=== PATIENT | male | born 1945 | race Caucasian/White ===

== ENCOUNTER 2017-11-03 10:09 | Day surgery (SDC) | payer MEDICARE ==
[2017-11-03] MEDS: CYCLOPENTOLATE 2% OPHTH SOLN 2ML BTL OS (07:00)
[2017-11-03] MEDS: ACETYLCHOLINE OPHTH SOLN 1% 2ML (MIOCHOL-E) As Ordered (07:09)
[~2017-11-03 10:09] MED LIST: ACETAMINOPHEN 325 MG TAB PO; AcetaZOLAMIDE 500MG INJECTION (J1120) IV; MANNITOL 20% BAG 250 ML IV; PHENYLEPHRINE HCL 10 % OPHTH. SOL 5ML OS; PROPARACAINE 0.5% OPHTH SOL 15ML OS
[2017-11-03] MEDS: OFLOXACIN 0.3 % (OCUFLOX) OPTH SOL 5ML OS (10:55)
[2017-11-03] MEDS: PHENYLEPHRINE 2.5% OPHTH SOL 2ML OS (10:55)
[2017-11-03] MEDS: TROPICAMIDE 1% OPHTH SOLN 2ML OS (10:55)
[2017-11-03] MEDS: LIDOCAINE 3.5 % 1ML OPHTH TOPICAL GEL OU (10:56)
[2017-11-03] MEDS ORDERED: MIDAZOLAM INJ 2 MG/2 ML VIAL (J2250) As Ordered (13:02)
[2017-11-03] MEDS ORDERED: fentaNYL 100 MCG/2 ML INJECTION (J3010) As Ordered (13:02)
[2017-11-03] MEDS: POVIDONE-IODINE 5% OPHTH PREP SOL 30ML As Ordered (13:32)
[2017-11-03] MEDS: LIDOCAINE 1% SDV 5 ML VIAL As Ordered (13:37)
[2017-11-03] MEDS: HEALON DUET (HEALON 10MG/ML 0.55ML & HEALON ENDOCOAT 30MG/ML 0.85ML) As Ordered (13:39)
[2017-11-03] MEDS: CEFUROXIME 1MG/0.1ML INTRACAMERAL INJ As Ordered (13:40)
[2017-11-03] MEDS: BALANCED SALT IRRIGATION SOLUTION 500ML BAG (FOR OR EYE MACHINE) As Ordered (13:40)
[2017-11-03] MEDS ORDERED: AcetaZOLAMIDE 500 MG ER CAP As Ordered (14:32)
[2017-11-03] MEDS: AcetaZOLAMIDE 500 MG ER CAP PO (14:45)
[2017-11-03] MEDS: KETOROLAC 0.5% OPHTH SOLN OS (14:45)
[2017-11-03] MEDS ORDERED: TRIMETHOBENZAMIDE 300 MG CAP PO (14:45)
== END 2017-11-03 14:53 | disposition home or self-care (01) ==
LOC: M SDC 10:09
DX: H25.12 Age-related nuclear cataract, left eye (principal)
CPT/HCPCS: 66984

== ENCOUNTER → 2023-02-22 | Outpatient (REF) | payer MEDICARE ==
[~2023-02-22] MED LIST changes: -ACETAMINOPHEN 325 MG TAB PO; -AcetaZOLAMIDE 500MG INJECTION (J1120) IV; -MANNITOL 20% BAG 250 ML IV; -PHENYLEPHRINE HCL 10 % OPHTH. SOL 5ML OS; -PROPARACAINE 0.5% OPHTH SOL 15ML OS; +ZOLP10TA2 PO
== END ==
LOC: M LAB REF 16:25
PROVIDERS: ATTEND Internal Medicine
DX: N39.0 Urinary tract infection, site not specified (principal)

== ENCOUNTER → 2023-02-25 | Day surgery (SDC) | payer MEDICARE ==
[~2023-02-25] VITALS: Ht 175.3 cm; Wt 78.0 kg
[~2023-02-25] MED LIST changes: +BSS IRRIG/VANCO(10MG)/TOBRA(5MG)/EPINEPH(1:1000-0.5CC)500ML BAG-ORONLY IR ONE; +CEFUROXIME 1MG/0.1ML INTRACAMERAL INJ As Ordered ONE; +CYCLOPENTOLATE 1% OPHTH SOLN 2ML BTL OD SCH; +LIDOCAINE 1% SDV 5ML VIAL As Ordered ONE; +LIDOCAINE 3.5 % 1ML OPHTH TOPICAL GEL OU ONE; +MIDAZOLAM INJ 2MG/2ML VIAL As Ordered ONE; +OFLOXACIN 0.3 % (OCUFLOX) OPTH SOL 5ML OD ONE; +PHENYLEPHRINE 10% OPHTH SOL 5ML OD PRN; +PHENYLEPHRINE 2.5% OPHTH SOL 2ML OD SCH; +TROPICAMIDE 1% OPHTH SOLN 15ML OD SCH; +fentaNYL 100 MCG/2 ML INJECTION As Ordered ONE
[2023-02-25 11:17] VITALS: BP 128/71; TEMP 97.9; O2SAT 96
== END | disposition home or self-care (01) ==
LOC: M SDC 09:13
PROVIDERS: ATTEND Ophthalmology
DX: H25.11 Age-related nuclear cataract, right eye (principal); K90.0 Celiac disease; Z79.899 Other long term (current) drug therapy
CPT/HCPCS: 66984; J0697; J2250; J3010; V2632